=== PATIENT | female | born 1950 | race Caucasian/White ===

== ENCOUNTER 2019-02-03 14:01 | Inpatient (IN) | payer MEDICARE ==
[~2019-02-03] VITALS: Ht 160 cm; Wt 77.1 kg
--- NOTE | 2019-02-03 14:42 | NUR ---
PT BIB [facility] HOME, FOR PSYCH EVAL FOR REFUSING MEDICATION, PT IS AAOX3, HOOKED TO MONITOR, KEPT RESTED AND COMFORTABLE, WILL CONTIUE TO MONITOR.
--- NOTE | 2019-02-03 15:04 | NUR ---
SEEN AND EXAMINED BY CLARITA MIX
--- NOTE | 2019-02-03 15:10 | NUR ---
URINE SPECIMEN COLLECTED AND SENT TO LAB.
--- NOTE | 2019-02-03 15:22 | NUR ---
ER PHLEB AT BEDSIDE FOR BLOOD DRAW.
[2019-02-03 15:29] LABS: BASOPHILS # (AUTO) 0.1 /CMM (0.0-0.2); BASOPHILS % (AUTO) 0.7 % (0.0-2.0); EOSINOPHILS % (AUTO) 3.8 % (0.0-6.0); HEMATOCRIT 41 % (33-45); HEMOGLOBIN 13.7 g/dL (11.5-14.8); LYMPHOCYTES # (AUTO) 2.4 /CMM (0.8-4.8); LYMPHOCYTES % (AUTO) 34.8 % (20.0-44.0); MEAN CORPUSCULAR HGB CONC 33 g/dl (31.0-36.0); MEAN CORPUSCULAR VOLUME 88 fL (82-100); MONOCYTES # (AUTO) 0.5 /CMM (0.1-1.30); MONOCYTES % (AUTO) 7.4 % (2.0-12.0); NEUTROPHILS # (AUTO) 3.7 /CMM (1.8-8.9); NEUTROPHILS % (AUTO) 53.3 % (43.0-81.0); PLATELET COUNT (AUTO) 238 /CMM (150-450); RED BLOOD CELL COUNT(AUTO) 4.68 MIL/uL (4.0-5.2)
--- NOTE | 2019-02-03 15:30 | NUR ---
SON LUCERO CALLED ASKING FOR UPDATES
[2019-02-03 15:32] LABS: APPEARANCE,URINE Clear (CLEAR); BILIRUBIN,URINE Negative (NEGATIVE); BLOOD, URINE Small Ery/uL (NEGATIVE); COLOR,URINE Yellow (YELLOW); KETONES,URINE Negative (NEGATIVE); LEUKOCYTE ESTERASE ,URINE Trace (NEGATIVE); NITRITE, URINE Negative (NEGATIVE); PH,URINE 5.5 (5.0-8.0); PROTEIN,URINE Negative (NEGATIVE); UGLUCOSE Negative (NEGATIVE); UROBILINOGEN,URINE 0.2 EU/dL (0.2)
[2019-02-03 15:35] LABS: CALCIUM, SERUM 9.1 mg/dL (8.5-10.1); CARBON DIOXIDE 32 mmol/L (21-32); CHLORIDE 105 mmol/L (98-107); CREATININE 0.9 mg/dL (0.6-1.3); GLUCOSE 99 mg/dL (74-106); POTASSIUM 3.8 mmol/L (3.5-5.1); SODIUM SERUM 143 mmol/L (136-145); UREA NITROGEN, BLOOD 20 mg/dL (7-18)
[2019-02-03 15:41] LABS: BACTERIA,URINE None seen /HPF (None Seen); SQUAMOUS EPITHELIAL CELL,UR Few /HPF (None Seen); WBC,URINE 0-2 /HPF (0-3)
[2019-02-03 15:42] LABS: ALANINE AMINOTRANSFERASE 20 U/L (12-78); ALBUMIN 3.7 g/dL (3.4-5.0); ALCOHOL, BLOOD < 3 mg/dL (0-0); ALKALINE PHOSPHATASE 91 U/L (46-116); ASPARTATE AMINOTRANSFERASE 13 U/L (15-37); BILIRUBIN,TOTAL 0.3 mg/dL (0.2-1.0); SALICYLATE 0.8 mg/dL (2.8-20.0); TOTAL PROTEIN, SERUM 7.1 g/dL (6.4-8.2)
[2019-02-03 15:43] LABS: ACETAMINOPHEN 0 ug/ml (10-30)
--- NOTE | 2019-02-03 18:00 | NUR ---
JAMIE CALLEJAS CRISISTEAM AT BEDSIDE FOR EVAL.
--- NOTE | 2019-02-03 18:25 | NUR ---
TALKED TO LUCERO CONCEPCION FOR PT UPDATE. [phone]
--- NOTE | 2019-02-03 19:00 | NUR ---
BED ASSIGNED 214-1 GPS
--- NOTE | 2019-02-03 19:20 | NUR ---
PT RECEIVED FROM JENNIE BALL RN FOR [facility]. PT IS PENDING FOR ADMISSION.
--- NOTE | 2019-02-03 19:47 | NUR ---
REPORT GIVEN TO BRITTA RENDON FOR [facility]. PT GOING TO 214-1
--- NOTE | 2019-02-03 19:49 | NUR ---
CALLED SON LUCERO TO [facility] FOR ADMISSION BUT NO ANSWER MESSAGE LEFT TO CALL BACK FOR UPDATE
--- NOTE | 2019-02-03 19:54 | NUR ---
SON CALLED BACK. AWARE OF PT'S ADMISSION. SON REQUESTING TO HAVE DR. BAILEY CALL THE SON TOMORROW.
[2019-02-03 20:15] VITALS: BP 160/80
--- NOTE | 2019-02-03 20:15 | NUR ---
PT TRANSPORTED TO UNIT BY EMT AT BEDSIDE. NAD NOTED DURING TRANSPORT.
--- NOTE | 2019-02-03 20:20 | NUR ---
GPS ADMISSION NOTE, RECEIVED PATIENT FROM [facility].. PATIENT ARRIVED ON THIS UNIT AT 2020 VIA STRETCHER WITH 2 EMT ESCORTS. PATIENT ADMITTED ON A 5150 HOLD FOR GD. PER HOLD PATIENT HAS BEEN AGITATED AND UNMANAGEABLE AT FACILITY AND WAS REFERRED TO Filippo BAILEY. PATIENT WAS HOSTILE AND UNCOOPERATIVE WITH INTERVIEW. SHE HAS AN ANGRY AFFECT AND STATED, " YOU ARE IN THE WRONG PLACE! I AM NOT TELLING YOU A DAM THING. DR PASCAL IS MY DOCTOR AND I ONLY DEAL WITH HIM " ! PER DR BAILEY, HARVEY HAS BEEN PARANOID THAT STAFF AT THE FACILITY WANT TO POISON HER, SHE HAS BEEN ANGRY AND AGITATED, AND SHE IS REFUSING ALL CARE FROM STAFF. PATIENT IS UNPREDICTABLE AND UNMANAGEABLE AT THE FACILITY IN HER CURRENT CONDITION. THE 5150 WAS REVIEWED AND THE DOCUMENTATION IN THE 5150 HOLD APPEARS TO REFLECT THE PRESENTATION OF THE PATIENT. UPON FACE TO FACE ASSESSMENT PATIENT IS NOTED TO BEING WITHDRAWN, DISHEVELED, DISORGANIZED, DEMANDING, COOPERATIVE, PARANOID, AND NEEDS REDIRECTION. PATIENT IS CURRENTLY LYING IN BED AWAKE, HAS NO S/S OR COMPLAINTS OF PAIN. PATIENT IS DISPLAYING NO S/S OF APPARENT DISTRESS. PATIENT BREATHING IS UNLABORED WITH EQUAL RISE AND FALL OF THE CHEST. PATIENT IS ALERT AND ORIENTATED X 2 ON ROOM AIR. PATIENT ASSISTED WITH TURING AND REPOSITIONING Q2HR AND PRN FOR COMFORT AND CIRCULATION. PATIENT HAS NO NEEDS AT THIS TIME. PATIENT DENIES SUICIDE IDEATIONS AND HOMICIDAL IDEATIONS AT THIS TIME. PATIENT REFUSED TO SIGNS ANY PAPER WORK AND THINKS THIS IS ALL A MISTAKE. PATIENT ADVISED OF HER HOLD AND PATIENT RIGHTS BOOKLET GIVEN. PATIENT IS UNDER THE PSYCHIATRIC CARE OF DR. BAILEY AND THE MEDICAL CARE OF DR JIMENEZ. PATIENT BELONGINGS WERE INVENTORIED AND CHECKED FOR CONTRABAND. ALL CONTRABAND REMOVED AND STORED IN PATIENT HALLWAY LOCKER. PATIENT ADVANCED DIRECTIVES PREFERENCE, IMMUNIZATIONS QUESTIONER, NECESSARY PAPERWORK COMPLETED. PATIENT SKIN ASSESSMENT COMPLETED. PATIENT ORIENTATED TO ROOM, FLOOR, AND STAFF WITH ALL QUESTIONS ANSWERED. PATIENT EDUCATED ON THE USE OF THE CALL CAMPOS. PATIENT BED SIDE RAILS ARE UP X 2 FOR SAFETY. PATIENT BED IS LOCKED, LOW AND I WILL CONTINUE TO MONITOR THIS PATIENT Q 15 MIN WITH THE HELP OF STAFF TO MAINTAIN SAFETY.
[2019-02-03] MEDS ORDERED: MAGNESIUM HYDROXIDE 30 ML UDC PO PRN (20:30)
[2019-02-03] MEDS ORDERED: ACETAMINOPHEN 325 MG TABLET PO PRN (20:30)
[2019-02-03] MEDS ORDERED: MAG HYDROX/AL HYDROX/SIMETH 30 ML UDC PO PRN (20:30)
[2019-02-03] MEDS ORDERED: TEMAZEPAM 7.5 MG CAPSULE PO PRN (20:30)
[2019-02-03] MEDS ORDERED: LOSA25TA27 PO (20:55)
[2019-02-03] MEDS ORDERED: BENZ2TAB7 PO (20:57)
[2019-02-03] MEDS ORDERED: CHOL20004 PO (20:58)
[2019-02-03] MEDS ORDERED: ARIP15TA3 PO (20:59)
[2019-02-04 08:00] VITALS: BP 160/85
[2019-02-04] MEDS: LORAZEPAM 0.5 MG TABLET PO PRN (08:33)
[2019-02-04] MEDS: CHOLECALCIFEROL 1,000 UNIT TABLET (VIT D3) PO SCH (08:34)
[2019-02-04] MEDS: LOSARTAN POTASSIUM 25 MG TABLET PO SCH (08:34)
--- NOTE | 2019-02-04 09:00 | NUR ---
NURSE NOTE RECEIVED PT ALERT IN HER ROOM, PREOCCUPIED WITH THOUGHT RESPONDING TO INTERNAL STIMULI, STATED THAT SHE WANT TO BE DISCHARGED,
[2019-02-04] MEDS: risperiDONE 1 MG TABLET PO SCH ×2 (13:46→21:00)
--- NOTE | 2019-02-04 14:32 | NUR ---
RN-CO: Patient refused blood works 3x. Enc the benefits but still refused.
--- NOTE | 2019-02-04 14:54 | NUR ---
SW contacted pts son Sharif [phone] for collateral information, discharge planning, and treatment planning. Son stated that pt has been on and off her medications and also stated that pts medications need to be adjusted. Son is also agreeing with pt to be discharged to SNF.
--- NOTE | 2019-02-04 15:23 | NUR ---
INITIAL DISCHARGE PLAN: Patient needs chcf placement as pt is uncooperative with care. Pts son Sharif [phone] agrees with short term placement at [facility] before returning to [facility] Address: [address] [place] [address], [place] [address] . SW will help form a safe and proper discharge in collaboration with .
[2019-02-04 16:00] VITALS: BP 154/80
--- NOTE | 2019-02-04 17:20 | NUR ---
NURSE NOTE PT SPEND MOST OF THE SHIFT IN HER ROOM, MINI INTERACTION WITH OTHER PEERS, CONTINUE TO FOCUSED ON DISCHARGED
[2019-02-04 19:57] VITALS: BP 123/87
--- NOTE | 2019-02-04 21:30 | NUR ---
GPS RN NOTE: REFUSED RISPERDAL, EXPLAINED THE RISK AND BENEFIT X 3 ATTEMPTS, PATIENT STILL REFUSED AND STARTED GETTING AGITATED. STATED THAT SHE HAS THE RIGHT TO REFUSED AND SHE REFUSED. NOTIFIED CN. WILL CONTINUE TO MONITOR
[2019-02-05 08:00] VITALS: BP 147/64
[2019-02-05] MEDS: risperiDONE 1 MG TABLET PO SCH ×2 (09:00→20:43)
[2019-02-05] MEDS: CHOLECALCIFEROL 1,000 UNIT TABLET (VIT D3) PO SCH (09:00)
[2019-02-05] MEDS: LOSARTAN POTASSIUM 25 MG TABLET PO SCH (09:00)
--- NOTE | 2019-02-05 09:01 | NUR ---
GPS/RN NOTES PATIENT'S ROUTINE MORNING MEDICATIONS NOT GIVEN DUE TO PATIENT REFUSING. EXPLAINED RISK AND BENEFITS X3. STILL REFUSED X3. PATIENT STATED " I AM NOT SUPPOSED TO BE TAKING THOSE MEDICATIONS." PATIENT REMAINS IN STABLE CONDITION. WILL CONTINUE TO MONITOR CLOSELY.
[2019-02-05 16:00] VITALS: BP 154/97
--- NOTE | 2019-02-05 18:41 | NUR ---
GPS/RN CLOSING NOTES PATIENT IN THE ROOM AWAKE, ALERT AND ABLE TO MAKE NEEDS KNOWN. PATIENT WAS SEEN AND EVALUATED BY DR. BAILEY. NO NEW ORDERS AT THIS TIME. NO PAIN OR ACUTE DISTRESS AT THIS TIME. RESPIRATION EVEN AND UNLABORED. SKIN IS DRY WARM TO TOUCH. PATIENT ABLE TO TOLERATE MEALS WELL. PATIENT REFUSED TO TAKE HER MEDICATIONS. DR. BAILEY WAS AWARE OF THE REFUSAL. PATIENT CONTINUES TO PACE AROUND THE ROOM AND TALKING TO SELF. NO SI/HI. PATIENT REMAINS IN STABLE CONDITION THROUGHOUT. PROVIDED SAFETY AND COMFORT. ALL NEEDS ANTICIPATED. KEPT CLEAN AND DRY. CALL LIGHT WITHIN REACHED. BED LOCKED AND IN LOWEST POSITION. WILL CONTINUE TO MONITOR. ENDORSED TO PM NURSE FOR [facility].
[2019-02-05 20:00] VITALS: BP 124/77
--- NOTE | 2019-02-05 20:43 | NUR ---
RISPERIDONE 0.5 MG TAB PO DUE AT 2100 REFUSED. PATIENT STATED," MY DOCTOR TOLD ME NOT TO TAKE IT, I DON'T WANT IT."
[2019-02-06 08:00] VITALS: BP 151/106
[2019-02-06] MEDS: LOSARTAN POTASSIUM 25 MG TABLET PO SCH (08:45)
[2019-02-06] MEDS: risperiDONE 1 MG TABLET PO SCH ×2 (08:45→20:30)
--- NOTE | 2019-02-06 08:46 | NUR ---
RN NOTE: PATIENT REFUSED HER 0900 RISPERDALE. STATED THAT HER PSYCHIATRIST SAID NOT TO TAKE THE MEDICATION. AFTER SEVERAL ATTEMPTS, PATIENT STILL REFUSED MEDICATION AND STATED SHE WILL NOT TAKE THE MEDICATION AND WILL ONLY TAKE THE BLOOD PRESSURE MEDICATION AND VITAMINS.
[2019-02-06] MEDS: CHOLECALCIFEROL 1,000 UNIT TABLET (VIT D3) PO SCH (12:32)
--- NOTE | 2019-02-06 12:34 | NUR ---
RN NOTE: VITAMIN D GIVEN LATE DUE TO NOT ENOUGH TABLETS IN OMNICELL. PHARMACY WAS NOTIFIED.
[2019-02-06 16:00] VITALS: BP 158/96
--- NOTE | 2019-02-06 18:49 | NUR ---
RN NOTE: PATIENT WAS GIVEN WRITTEN INFORMATION ABOUT RISPERDAL AND WAS INFORMED AGAIN ON THE IMPORTANCE OF THE MEDICATION.
[2019-02-06 19:56] VITALS: BP 143/72
--- NOTE | 2019-02-06 20:31 | NUR ---
RISPERDAL 0.5 MG TAB PO Q 12H DUE AT 2100, REFUSED AGAIN FROM LAST NIGHT. MD AWARE. SINCE DAY SHIFT PER RN REPORT.
[2019-02-07 08:00] VITALS: BP 160/68
[2019-02-07] MEDS: LOSARTAN POTASSIUM 25 MG TABLET PO SCH (09:00)
[2019-02-07] MEDS: risperiDONE 1 MG TABLET PO SCH ×2 (09:00→21:00)
[2019-02-07] MEDS: CHOLECALCIFEROL 1,000 UNIT TABLET (VIT D3) PO SCH (09:00)
--- NOTE | 2019-02-07 10:07 | NUR ---
RN NOTES Patient refused medications. Explained risk and benefits of medications. Patient still refused. Patient in stable condition with no acute distress. Will continue to monitor.
[2019-02-07 16:00] VITALS: BP 156/87
--- NOTE | 2019-02-07 21:03 | NUR ---
REFUSED RISPERDAL 0.5 MG PO DUE FOR 2100 TONIGHT.
[2019-02-08 08:00] VITALS: BP 160/78
[2019-02-08] MEDS: CHOLECALCIFEROL 1,000 UNIT TABLET (VIT D3) PO SCH (09:00)
[2019-02-08] MEDS: LOSARTAN POTASSIUM 25 MG TABLET PO SCH (09:00)
[2019-02-08] MEDS: risperiDONE 1 MG TABLET PO SCH ×2 (09:00→21:00)
[2019-02-08 16:00] VITALS: BP 150/75
[2019-02-08 20:24] VITALS: BP 139/86
[2019-02-09 08:00] VITALS: BP 152/74
[2019-02-09] MEDS: LOSARTAN POTASSIUM 25 MG TABLET PO SCH (09:00)
[2019-02-09] MEDS: CHOLECALCIFEROL 1,000 UNIT TABLET (VIT D3) PO SCH (09:00)
[2019-02-09] MEDS: risperiDONE 1 MG TABLET PO SCH ×2 (09:00→17:00)
--- NOTE | 2019-02-09 09:33 | NUR ---
RN-CO: PATIENT STATED " I DON'T WANT TO TAKE ANY MEDICATIONS EVER!" RN GAVE THE IMPORTANCE AND SIDE EFFECTS BUT PATIENT REMAINED FIRM.
--- NOTE | 2019-02-09 09:51 | NUR ---
BILLY contacted pts Son Sharif [phone] and left a voicemail notifying him pt is scheduled for a Riese Hearing on this present day at 12:00pm.
--- NOTE | 2019-02-09 10:14 | NUR ---
SW received a call from pts Son Sharif [phone] stating this is pts first Riese Hearing and also stated he will not be able to attend the hearing.
[2019-02-09 16:00] VITALS: BP 150/79
[2019-02-09] MEDS ORDERED: OLANZAPINE 10 MG VIAL IM PRN (19:00)
[2019-02-09 20:18] VITALS: BP 139/80
[2019-02-10 08:00] VITALS: BP 154/84
[2019-02-10] MEDS: LOSARTAN POTASSIUM 25 MG TABLET PO SCH (08:25)
[2019-02-10] MEDS: risperiDONE 1 MG TABLET PO SCH ×2 (08:26→16:49)
[2019-02-10] MEDS: CHOLECALCIFEROL 1,000 UNIT TABLET (VIT D3) PO SCH (08:29)
--- NOTE | 2019-02-10 11:00 | NUR ---
gps acoustical logging engineer: notes clean catch urinalysis collected. called lab to scrap picker specimen, spoke to xu.
[2019-02-10 13:07] LABS: APPEARANCE,URINE CLEAR (CLEAR); BILIRUBIN,URINE NEGATIVE (NEGATIVE); BLOOD, URINE NEGATIVE Ery/uL (NEGATIVE); COLOR,URINE YELLOW (YELLOW); KETONES,URINE NEGATIVE (NEGATIVE); LEUKOCYTE ESTERASE ,URINE NEGATIVE (NEGATIVE); NITRITE, URINE NEGATIVE (NEGATIVE); PROTEIN,URINE NEGATIVE (NEGATIVE); UGLUCOSE NEGATIVE (NEGATIVE); UROBILINOGEN,URINE 0.2 EU/dL (0.2)
[2019-02-10 16:00] VITALS: BP 162/96
--- NOTE | 2019-02-10 16:23 | NUR ---
BILLY received a call from pts Son Sharif [phone] requesting to speak with psychiatrist Dr. Galindo regarding possibility of starting pt on long acting shot instead of PO medication. BILLY informed Dr. Galindo that son wanted to speak with her, she stated she would be giving son a call this afternoon.
[2019-02-10 20:39] VITALS: BP 156/88
[2019-02-10 22:22] VITALS: BP 155/84
[2019-02-11 06:36] LABS: BASOPHILS % (AUTO) 0.6 % (0.0-2.0); EOSINOPHILS % (AUTO) 5.5 % (0.0-6.0); HEMATOCRIT 41 % (33-45); HEMOGLOBIN 13.4 g/dL (11.5-14.8); LYMPHOCYTES # (AUTO) 2.1 /CMM (0.8-4.8); LYMPHOCYTES % (AUTO) 34.6 % (20.0-44.0); MEAN CORPUSCULAR HGB CONC 33 g/dl (31.0-36.0); MEAN CORPUSCULAR VOLUME 88 fL (82-100); MONOCYTES # (AUTO) 0.5 /CMM (0.1-1.30); MONOCYTES % (AUTO) 7.7 % (2.0-12.0); NEUTROPHILS # (AUTO) 3.2 /CMM (1.8-8.9); NEUTROPHILS % (AUTO) 51.6 % (43.0-81.0); PLATELET COUNT (AUTO) 215 /CMM (150-450); RED BLOOD CELL COUNT(AUTO) 4.62 MIL/uL (4.0-5.2); WHITE BLOOD COUNT (AUTO) 6.2 K/uL (4.3-11.0)
[2019-02-11 06:49] LABS: CALCIUM, SERUM 8.9 mg/dL (8.5-10.1); CREATININE 0.9 mg/dL (0.6-1.3); MAGNESIUM 2.2 mg/dL (1.8-2.4); PHOSPHORUS 3.6 mg/dL (2.5-4.9); POTASSIUM 4.2 mmol/L (3.5-5.1)
[2019-02-11 08:00] VITALS: BP 163/72
[2019-02-11] MEDS: CHOLECALCIFEROL 1,000 UNIT TABLET (VIT D3) PO SCH (08:00)
[2019-02-11] MEDS: LOSARTAN POTASSIUM 25 MG TABLET PO SCH (08:01)
[2019-02-11] MEDS ORDERED: risperiDONE 1 MG TABLET PO SCH (09:00)
[2019-02-11] MEDS: LORAZEPAM 0.5 MG TABLET PO PRN (12:01)
[2019-02-11 16:00] VITALS: BP 163/89
--- NOTE | 2019-02-11 16:03 | NUR ---
Picked Edge Sewing Machine Operator Group Session-- Goal: Patient will attend group being held today from 11am -11:45 in the activities room and participate and/or actively listen to peers and be respectful. Intervention: SW invited patient to attend group session with peers regarding: the goal or positive outcome/s each pt. would like to see happen as a result of their stay in [facility]. SW respected patient�s self-determination and will continue to invite patient to future group sessions. Response: Patient declined to participate in today�s group rn social services session. Plan: Patient will be invited to attend next rn social services group held.
[2019-02-11] MEDS: risperiDONE 1 MG TABLET PO SCH (17:20)
[2019-02-11 19:49] VITALS: BP 163/103
[2019-02-11 21:00] VITALS: BP 135/67
[2019-02-12 08:00] VITALS: BP 156/83
[2019-02-12] MEDS: LOSARTAN POTASSIUM 25 MG TABLET PO SCH (08:42)
[2019-02-12] MEDS: risperiDONE 1 MG TABLET PO SCH (08:42)
[2019-02-12] MEDS: CHOLECALCIFEROL 1,000 UNIT TABLET (VIT D3) PO SCH (08:43)
--- NOTE | 2019-02-12 09:19 | NUR ---
BILLY faxed SNF referral to Angela, media marketing coordinator at [facility] Address: [address], [place] [address] for review.
--- NOTE | 2019-02-12 12:00 | NUR ---
SW received a call from Angela, real estate services coordinator at [facility] Address: [address], [place] [address] stating pt has been accepted to the facility.
[2019-02-12 16:35] VITALS: BP_SYST 100; BP_SYST 145; BP_DIAS 45; BP_DIAS 65
[2019-02-12] MEDS ORDERED: risperiDONE 1 MG TABLET PO SCH (17:00)
[2019-02-12 20:00] VITALS: BP 126/71
[2019-02-13 08:00] VITALS: BP 143/66
[2019-02-13] MEDS: CHOLECALCIFEROL 1,000 UNIT TABLET (VIT D3) PO SCH (08:49)
[2019-02-13] MEDS: risperiDONE-M 0.5 MG TAB.RAPDIS PO SCH ×2 (08:51→17:03)
[2019-02-13] MEDS: LOSARTAN POTASSIUM 25 MG TABLET PO SCH (08:52)
[2019-02-13] MEDS ORDERED: OLANZAPINE 10 MG VIAL IM PRN (15:30)
[2019-02-13 16:00] VITALS: BP 134/78
[2019-02-13] MEDS: DIVALPROEX SODIUM 250 MG TABLET.DR PO SCH (17:03)
[2019-02-13 20:00] VITALS: BP 147/90
[2019-02-14 08:00] VITALS: BP 130/67
[2019-02-14] MEDS: LOSARTAN POTASSIUM 25 MG TABLET PO SCH (08:37)
[2019-02-14] MEDS: CHOLECALCIFEROL 1,000 UNIT TABLET (VIT D3) PO SCH (08:37)
[2019-02-14] MEDS: DIVALPROEX SODIUM 250 MG TABLET.DR PO SCH ×3 (08:38→17:21)
[2019-02-14] MEDS: risperiDONE-M 0.5 MG TAB.RAPDIS PO SCH ×3 (08:39→17:21)
[2019-02-14 16:00] VITALS: BP 130/58
[2019-02-14 19:57] VITALS: BP 134/77
[2019-02-15 08:00] VITALS: BP 149/90
[2019-02-15] MEDS: risperiDONE-M 0.5 MG TAB.RAPDIS PO SCH ×3 (08:38→17:13)
[2019-02-15] MEDS: DIVALPROEX SODIUM 250 MG TABLET.DR PO SCH ×3 (08:38→17:13)
[2019-02-15] MEDS: LOSARTAN POTASSIUM 25 MG TABLET PO SCH ×2 (08:39→09:00)
[2019-02-15] MEDS: CHOLECALCIFEROL 1,000 UNIT TABLET (VIT D3) PO SCH (08:40)
--- NOTE | 2019-02-15 09:38 | NUR ---
GPS RN NOTES: PT REFUSED BP MEDICATION THREE TIMES. VITAL SIGNS TAKEN, BP 129/76,PULSE 90. PT STABLE AND TOOK ALL OTHER SCHEDULED MEDICATION.
[2019-02-15 16:32] VITALS: BP 130/75
[2019-02-15 20:18] VITALS: BP 160/82
[2019-02-16 00:35] VITALS: BP 125/71
[2019-02-16 08:00] VITALS: BP 141/72
[2019-02-16] MEDS: DIVALPROEX SODIUM 250 MG TABLET.DR PO SCH ×3 (08:37→17:24)
[2019-02-16] MEDS: CHOLECALCIFEROL 1,000 UNIT TABLET (VIT D3) PO SCH (08:37)
[2019-02-16] MEDS: risperiDONE-M 0.5 MG TAB.RAPDIS PO SCH ×3 (08:37→17:24)
[2019-02-16] MEDS: LOSARTAN POTASSIUM 25 MG TABLET PO SCH (08:38)
--- NOTE | 2019-02-16 08:39 | NUR ---
RN NOTE: PATIENT REFUSEDE HER 0900 BP MED WITH BP 141/72. EXPLAINED THE IMPORTANCE OF MEDICATION AND PATIENT CONTINUES TO REFUSE.
[2019-02-16] MEDS ORDERED: MISCELLANEOUS MED 1 EA EA XX ONE (12:00)
[2019-02-16 16:00] VITALS: BP 132/59
[2019-02-16 20:00] VITALS: BP 120/57
[2019-02-17 07:48] LABS: BASOPHILS % (AUTO) 0.7 % (0.0-2.0); EOSINOPHILS % (AUTO) 7.3 % (0.0-6.0); HEMATOCRIT 41 % (33-45); HEMOGLOBIN 13.7 g/dL (11.5-14.8); LYMPHOCYTES # (AUTO) 2.5 /CMM (0.8-4.8); LYMPHOCYTES % (AUTO) 41.2 % (20.0-44.0); MEAN CORPUSCULAR HGB CONC 34 g/dl (31.0-36.0); MEAN CORPUSCULAR VOLUME 87 fL (82-100); MONOCYTES # (AUTO) 0.4 /CMM (0.1-1.30); MONOCYTES % (AUTO) 6.1 % (2.0-12.0); NEUTROPHILS # (AUTO) 2.8 /CMM (1.8-8.9); NEUTROPHILS % (AUTO) 44.7 % (43.0-81.0); PLATELET COUNT (AUTO) 224 /CMM (150-450); RED BLOOD CELL COUNT(AUTO) 4.67 MIL/uL (4.0-5.2); WHITE BLOOD COUNT (AUTO) 6.2 K/uL (4.3-11.0)
[2019-02-17 08:00] VITALS: BP 134/79
[2019-02-17 08:00] LABS: ALBUMIN 3.5 g/dL (3.4-5.0); BILIRUBIN,TOTAL 0.3 mg/dL (0.2-1.0); CALCIUM, SERUM 9.3 mg/dL (8.5-10.1); CREATININE 0.9 mg/dL (0.6-1.3); POTASSIUM 4.3 mmol/L (3.5-5.1); TOTAL PROTEIN, SERUM 7.3 g/dL (6.4-8.2)
[2019-02-17] MEDS: DIVALPROEX SODIUM 250 MG TABLET.DR PO SCH ×2 (08:54→12:02)
[2019-02-17] MEDS: CHOLECALCIFEROL 1,000 UNIT TABLET (VIT D3) PO SCH (08:54)
[2019-02-17] MEDS ORDERED: INVEGA SUSTENNA 156 MG IM ONE (09:00)
[2019-02-17] MEDS: LOSARTAN POTASSIUM 25 MG TABLET PO SCH (09:00)
[2019-02-17] MEDS ORDERED: OLANZAPINE 10 MG VIAL IM PRN (12:00)
--- NOTE | 2019-02-17 15:54 | NUR ---
GROUP NOTE: SW prompted pt to attend group therapy pt unable to participate due to responding to internal stimuli and stating she did not want to leave her room.
[2019-02-17 16:00] VITALS: BP 151/94
[2019-02-17] MEDS: risperiDONE 1 MG TABLET PO SCH (16:21)
[2019-02-17] MEDS: DIVALPROEX SODIUM 500 MG TABLET.DR PO SCH (19:47)
[2019-02-17 20:12] VITALS: BP 130/78
[2019-02-18 08:00] VITALS: BP 152/83
[2019-02-18] MEDS: DIVALPROEX SODIUM 250 MG TABLET.DR PO SCH ×2 (08:40→13:11)
[2019-02-18] MEDS: LOSARTAN POTASSIUM 25 MG TABLET PO SCH (08:41)
--- NOTE | 2019-02-18 08:41 | NUR ---
RN NOTE: PATIENT REFUSED HER 0900 BP MED. INFORMED HER OF HER BP LEVEL OF 159/89 AND TGHE IMPORTANCE OF TAKING THE MEDICATION SEVERAL TIMES, PATIENT CONTINUES TO REFUSE.
[2019-02-18] MEDS: CHOLECALCIFEROL 1,000 UNIT TABLET (VIT D3) PO SCH (08:42)
[2019-02-18] MEDS: risperiDONE 1 MG TABLET PO SCH ×2 (08:52→16:59)
--- NOTE | 2019-02-18 15:05 | NUR ---
CONCERNED OVER CALLOUSED AREA INNER LT. LITTLE TOE.WOUND CONSULT ORDERED.
--- NOTE | 2019-02-18 15:33 | NUR ---
GROUP NOTE: SW prompted pt to attend group therapy pt unable to participate due to responding to internal stimuli and began yelling at SW telling her she did not want to talk to her.
[2019-02-18 16:00] VITALS: BP 136/86
[2019-02-18] MEDS: DIVALPROEX SODIUM 500 MG TABLET.DR PO SCH (20:06)
[2019-02-18 20:28] VITALS: BP 139/56
[2019-02-19 08:00] VITALS: BP 131/68
[2019-02-19] MEDS: CHOLECALCIFEROL 1,000 UNIT TABLET (VIT D3) PO SCH (08:51)
[2019-02-19] MEDS: risperiDONE 1 MG TABLET PO SCH ×2 (08:51→17:10)
[2019-02-19] MEDS: DIVALPROEX SODIUM 250 MG TABLET.DR PO SCH ×3 (08:51→17:13)
[2019-02-19] MEDS: LOSARTAN POTASSIUM 25 MG TABLET PO SCH (09:00)
--- NOTE | 2019-02-19 14:53 | NUR ---
BILLY contacted pts Son Sharif [phone] and left a voicemail informing him pt will be discharging tomorrow Saturday02/20/19 at 12:00pm [facility].
--- NOTE | 2019-02-19 15:52 | NUR ---
Group Note: SW prompted pt to attend group therapy pt unable to participate due to responding to internal stimuli and began verbally aggressive.
[2019-02-19 16:00] VITALS: BP 140/79
[2019-02-19] MEDS: DIVALPROEX SODIUM 500 MG TABLET.DR PO SCH (20:11)
[2019-02-19 20:15] VITALS: BP 155/85
[2019-02-20 08:00] VITALS: BP 144/75
[2019-02-20] MEDS: DIVALPROEX SODIUM 250 MG TABLET.DR PO SCH ×2 (08:36→12:44)
[2019-02-20] MEDS: risperiDONE 1 MG TABLET PO SCH (08:36)
[2019-02-20] MEDS: CHOLECALCIFEROL 1,000 UNIT TABLET (VIT D3) PO SCH (08:36)
[2019-02-20 08:38] VITALS: BP 140/75
[2019-02-20] MEDS: LOSARTAN POTASSIUM 25 MG TABLET PO SCH (08:38)
--- NOTE | 2019-02-20 09:00 | NUR ---
RN-CO:Dr Galindo gave an order to discontinue hold and discharge patient to SNF today, noted. Patient to her PO meds, calm and cooperative to care. Patient denied suicidal and homicidal ideation. She denied command hallucination. No acute distress noted.
--- NOTE | 2019-02-20 09:57 | NUR ---
DISCHARGE NOTE: Pt will be discharged at 12:00pm via [facility] to [facility] ([facility] [address] [facility] [address] . Pt's Son Sharif [phone] has been notified via voicemail. Pts mood is less irritable/paranoid with flat affect. Pt denied suicidal/homicidal ideation. Pt is responding intermittently to visual/auditory hallucinations. Pt will be under the care of Psychiatrist: Dr. Amira Galindo [address] [place] [phone] and Safety Associate: Dr Carranza Address: [address] [place] [id number] . The multidisciplinary exit care form was done, printed, signed, and given to the patient.
--- NOTE | 2019-02-20 11:44 | NUR ---
SS Group Goal: Patient will attend group being held today from 10am -10:30 in the activities room and participate and/or actively listen to peers and be respectful. Intervention: SW facilitated group session with patients regarding their support system. Response: Patient was sleeping and did not attend group session. Plan: Patient will be invited to attend next social service assistant group session held.
--- NOTE | 2019-02-20 13:00 | NUR ---
Discharged patient in stable condition picked up by ambulance crew. dc paperwork given to pretzel packer. report given to BRITTA Ogden from [facility] [place] instructions given, verbalized understanding. removed name band. all belongings returned to patient. refused skin check and photos, per report patient skin is intact. 1245: T/O from Dr. Davis to continue Home Meds and DC the PRNs.
== END 2019-02-20 13:35 | DRG 885 ==
LOC: ER 14:07 → GPS 19:41
PROVIDERS: ADMIT Psychiatry & Neurology Psychosomatic Medicine; ATTEND Internal Medicine
DX: F25.0 Schizoaffective disorder, bipolar type (principal); F32.9 Major depressive disorder, single episode, unspecified; F41.9 Anxiety disorder, unspecified; I10 Essential (primary) hypertension; F29 Unspecified psychosis not due to a substance or known physiological condition; Z73.6 Limitation of activities due to disability; Z91.14 Patient's other noncompliance with medication regimen
CPT/HCPCS: 36415; 80048-TC; 80053-TC; 80076-TC; 80164-TC; 80305; 81000-TC; 83735-TC; 84100-TC; 85025-TC; 87081-TC; 87086-TC; G0480

== ENCOUNTER 2019-04-29 13:51 | Inpatient (IN) | payer MEDICARE ==
[~2019-04-29] VITALS: Ht 157.5 cm; Wt 89.8 kg
[~2019-04-29 13:51] MED LIST: ARIP15TA3 PO; BENZ2TAB7 PO; CHOL20004 PO; LOSA25TA27 PO
[2019-04-29] MEDS ORDERED: NA P133E RC (14:05)
[2019-04-29] MEDS ORDERED: MAGN400O6 PO (14:05)
[2019-04-29] MEDS ORDERED: DOCU-141 PO (14:05)
[2019-04-29] MEDS ORDERED: ACET-868 PO (14:05)
[2019-04-29] MEDS ORDERED: BISA10SU11 RC (14:05)
--- NOTE | 2019-04-29 14:10 | NUR ---
MAIN [facility], FOR PSYCH EVAL. INCREASING PARANOIA, REFUSING TO LEAVE ROOM DENIES SI/HI. PATIENT A/OX2 WITH EPISODES OF CONFUSION, KEPT COMFORTABLE. URINE SAMPLE OBTAINED AND SENT TO LAB.
[2019-04-29 14:24] LABS: APPEARANCE,URINE Clear (CLEAR); BILIRUBIN,URINE Negative (NEGATIVE); BLOOD, URINE Trace-intact Ery/uL (NEGATIVE); COLOR,URINE Yellow (YELLOW); KETONES,URINE Negative (NEGATIVE); LEUKOCYTE ESTERASE ,URINE Trace (NEGATIVE); NITRITE, URINE Negative (NEGATIVE); PH,URINE 5.5 (5.0-8.0); PROTEIN,URINE Negative (NEGATIVE); UGLUCOSE 100 MG/DL mg/dL (NEGATIVE); UROBILINOGEN,URINE 0.2 EU/dL (0.2)
[2019-04-29 14:25] LABS: BACTERIA,URINE Few /HPF (None Seen); SQUAMOUS EPITHELIAL CELL,UR Few /HPF (None Seen)
[2019-04-29 14:43] LABS: BASOPHILS % (AUTO) 0.6 % (0.0-2.0); EOSINOPHILS % (AUTO) 2.6 % (0.0-6.0); HEMATOCRIT 40 % (33-45); HEMOGLOBIN 13.4 g/dL (11.5-14.8); LYMPHOCYTES # (AUTO) 1.2 /CMM (0.8-4.8); MEAN CORPUSCULAR HGB CONC 33 g/dl (31.0-36.0); MEAN CORPUSCULAR VOLUME 87 fL (82-100); MONOCYTES # (AUTO) 0.3 /CMM (0.1-1.30); MONOCYTES % (AUTO) 4.6 % (2.0-12.0); NEUTROPHILS # (AUTO) 4.4 /CMM (1.8-8.9); NEUTROPHILS % (AUTO) 72.2 % (43.0-81.0); PLATELET COUNT (AUTO) 220 /CMM (150-450); WHITE BLOOD COUNT (AUTO) 6.1 K/uL (4.3-11.0)
[2019-04-29 14:53] LABS: CALCIUM, SERUM 8.9 mg/dL (8.5-10.1); CARBON DIOXIDE 31 mmol/L (21-32); CHLORIDE 103 mmol/L (98-107); CREATININE 1.3 mg/dL (0.6-1.3); GLUCOSE 161 mg/dL (74-106); POTASSIUM 3.7 mmol/L (3.5-5.1); SODIUM SERUM 138 mmol/L (136-145); UREA NITROGEN, BLOOD 21 mg/dL (7-18)
[2019-04-29 14:59] LABS: ACETAMINOPHEN 0 ug/ml (10-30); ALANINE AMINOTRANSFERASE 16 U/L (12-78); ALBUMIN 3.6 g/dL (3.4-5.0); ALCOHOL, BLOOD < 3 mg/dL (0-0); ALKALINE PHOSPHATASE 83 U/L (46-116); ASPARTATE AMINOTRANSFERASE 13 U/L (15-37); BILIRUBIN,DIRECT 0.1 mg/dL (0.0-0.2); BILIRUBIN,TOTAL 0.2 mg/dL (0.2-1.0); SALICYLATE 0.8 mg/dL (2.8-20.0); TOTAL PROTEIN, SERUM 7.1 g/dL (6.4-8.2)
[2019-04-29 15:13] LABS: THYROID STIMULATING HORMONE 1.033 uIU/mL (0.358-3.74)
--- NOTE | 2019-04-29 16:15 | NUR ---
GPS 211
--- NOTE | 2019-04-29 16:37 | NUR ---
REPORT GIVEN TO FANTASMA CALLEJAS
--- NOTE | 2019-04-29 17:19 | NUR ---
PATIENT TRANSFERRED TO ROOM 211, PATIENT IN STABLE CONDITION. STILL NOTED TO BE DELUSIONAL.
[2019-04-29] MEDS ORDERED: LORAZEPAM 0.5 MG TABLET PO PRN (17:30)
[2019-04-29] MEDS ORDERED: ACETAMINOPHEN 325 MG TABLET PO PRN ×2 (17:30→19:00)
[2019-04-29] MEDS ORDERED: MAGNESIUM HYDROXIDE 30 ML UDC PO PRN ×2 (17:30→19:00)
[2019-04-29] MEDS ORDERED: TEMAZEPAM 7.5 MG CAPSULE PO PRN (17:30)
[2019-04-29] MEDS ORDERED: BLOOD SUGAR DIAGNOSTIC 1 EACH STRIP IN ONE (17:30)
[2019-04-29] MEDS ORDERED: MAG HYDROX/AL HYDROX/SIMETH 30 ML UDC PO PRN (17:30)
[2019-04-29 17:40] VITALS: BP 145/76
--- NOTE | 2019-04-29 18:15 | NUR ---
ELECTROCARDIOGRAPHIC TECHNICIAN NOTE: PATIENT IS A 68 YEAR OLD FEMALE THAT [facility]. PATIENT GOT ADMITTED TO [facility] GPS AT 1715 PLACED ON A 5150 HOLD FOR GD. PER HOLD, "WHEN INTERVIEWED AT BEDSIDE, PT WAS CHALLENGING, IRRITATED, HER VOICE IS LOUD AND ANGRY. SHE STATED "I LIVE IN [place]. I LIVE NEAR THE SUPREME COURT ROOM, I AM MENTALLY SOUND. THE SUPREME COURT WILL TELL YOU THAT. I AM BEING CONTROLLED BY F-CKING PSYCHIATRISTS AND THEY ARE MURDERING ME WITH THEIR MEDICATIONS! A SNAKE IS NOT A PSYCHIATRIST!" PER STAFF AT THE FACILITY [facility], PATIENT HAS BEEN BARRICADING HERSELF IN HER ROOM AND REFUSING TO COME OUT. SHE WON'T SPEAK TO STAFF AND SHE HAS BEEN INCREASINGLY PARANOID AND DELUSIONAL. SHE CANNOT BE MANAGED IN HER CONDITION." UPON FACE TO FACE ASSESSMENT, PATIENT IS ALERT X 3. AGITATED. UNCOOPERATIVE WITH PLAN OF CARE. DISHEVELED. CLEAR SPEECH. ANGRY, HOSTILE AND VERBALLY AGGRESSIVE. PARANOID. GUARDED. DENIES SI/HI VAH AT THIS TIME. PATIENT REFUSES TO SIGN CONSENTS, SKIN CHECK, PICTURE BEING TAKEN, ACCUCHECK AND PLAN OF CARE. VITAL SIGNS TAKEN. MEDS RECONCILED WITH DR BAILEY WITH ADMITTING ORDERS. CALLED [employer] AND AWAITING CALL BACK FROM DR BRUMFIELD TO REVIEW MED RECON. GAVE PATIENT HANDBOOK INCLUDING PATIENT'S RIGHTS AND GUIDE TO PRESCRIPTIONS. WILL MONITOR PATIENT Q 15 MINUTES FOR SAFETY AND BEHAVIOR PER GPS PROTOCOL. Addendum: 04/29/19 at 1834 by CLYDE HARRELL RN INFORMED LUCERO LEODAN (SON) ON PATIENT'S ADMISSION TO [facility] GPS.
[2019-04-29] MEDS ORDERED: BISACODYL SUPP (10 MG) 10 MG/SUPP.RECT SUPP.RECT RC PRN (19:00)
[2019-04-29] MEDS ORDERED: NA PHOS,M-B/NA PHOS,DI-BA 1 EA ENEMA RC PRN (19:00)
[2019-04-29 20:31] VITALS: BP 148/66
[2019-04-30 07:38] LABS: CHOLESTEROL 233 mg/dL (<200); HDL CHOLESTEROL 47 mg/dL (40-60); LDL 156 mg/dL (0-99); TRIGLYCERIDES 94 mg/dL (30-150)
[2019-04-30 07:39] LABS: ALBUMIN 3.3 g/dL (3.4-5.0); BILIRUBIN,TOTAL 0.3 mg/dL (0.2-1.0); CALCIUM, SERUM 8.6 mg/dL (8.5-10.1); CREATININE 0.9 mg/dL (0.6-1.3); POTASSIUM 3.8 mmol/L (3.5-5.1); TOTAL PROTEIN, SERUM 6.7 g/dL (6.4-8.2)
[2019-04-30 08:00] VITALS: BP 157/79
[2019-04-30] MEDS: BENZTROPINE MESYLATE (1 MG) 1 MG TABLET PO SCH ×2 (08:17→16:43)
[2019-04-30] MEDS: LOSARTAN POTASSIUM 25 MG TABLET PO SCH (08:17)
[2019-04-30] MEDS: CHOLECALCIFEROL 1,000 UNIT TABLET (VIT D3) PO SCH (08:17)
--- NOTE | 2019-04-30 08:18 | NUR ---
RN NOTE: PATIENT REFUSED 0900 MEDICATIONS. EXPLAINED THE IMPORTANCE. PATIENT CONTINUES TO REFUSE AFTER MULTIPLE ATTEMPTS AND TOLD ME "I'M FIRED, GET THE F-CK OUT".
--- NOTE | 2019-04-30 10:03 | NUR ---
BILLY spoke with pts son Sharif [phone] who stated that he wanted to make sure pt is stable with her medications before she is discharged to an assisted living. BILLY informed him that pt is refusing medications and is refusing care. Pts son is aware and stated that he wants Dr. Galindo to call him to discuss pts treatment. BILLY informed him that she will notify Dr. Galindo.
--- NOTE | 2019-04-30 10:47 | NUR ---
SW received a call from Angela, equipment coordinator at [facility] Address: [address], [place] [address] who stated that pt is able to return to the facility. However, she mentioned that pts son had already made a down payment at [facility] Address: [address] [place] [address] and pt was ready to discharge but son did not make her aware of her transfer and that is when pt refused to go and was hospitalized. Per Angela, she stated facility will not accept her if she is non-compliant with care and medications.
--- NOTE | 2019-04-30 11:39 | NUR ---
INITIAL DISCHARGE PLAN: Per son Sharif [phone] he will not discuss discharge plan until pt os stable and med-compliant. Per Angela, recreation activities coordinator at [facility] Address: [address], [place] [address] pt is able to return and also informed SW that son has already paid a deposit at [facility] Address: [address] [place] [address] but pt is unable to be transferred there unless she is compliant with her treatment and medications. SW will help form a safe and proper discharge in collaboration with .
[2019-04-30 16:00] VITALS: BP 156/71
[2019-04-30] MEDS: risperiDONE-M 0.5 MG TAB.RAPDIS PO SCH (16:43)
--- NOTE | 2019-04-30 16:43 | NUR ---
RN NOTE: PATIENT REFUSED 1700 MEDS
[2019-04-30] MEDS: DOCUSATE SODIUM 100 MG CAPSULE PO SCH (18:00)
[2019-04-30 19:59] VITALS: BP 158/71
[2019-04-30 20:00] VITALS: BP 158/71
--- NOTE | 2019-04-30 20:00 | NUR ---
rn notes: met with pt in the room. pt is a/o x3, appears clam and comfortable, respirations even and unlabored. denies any pain or discomfort at this time. pt only engaged in interaction when asked. always sitting in the room. per report pt refused care, refused medications, assessment. asked if pt has hx of dm, as it was stated on her medical record, per pt she claimed she never had diabetes, and not taking any medications for it. informed pt about blood sugar monitoring, if i can do accucheck for her at this time, pt refused. she stated she only wants sandwhich and apple juice as she was hungry. pt denies any si/hi at this time. safety precautions for fall initaited, side rails up x2 for safety, will cotninue montioring pt [id number] for safety and any changes in behavior.
[2019-04-30] MEDS: DIVALPROEX SODIUM 250 MG TABLET.DR PO SCH (21:00)
[2019-04-30] MEDS: ATORVASTATIN 10 MG TABLET PO SCH (21:18)
--- NOTE | 2019-04-30 21:18 | NUR ---
non admin of depakote and lipitor: informed pt abpout schedule medication such as depakote and lipitor, pt started becoming agitated, yelled "go talk to magisterial district judge!" pt started cursing and stated darwin has no right to order any medication for her. Patient also added, "the magisterial district judge informed me not to get/receive any medication from anybody!". Informed pt she has the right to refuse medication, however, rn still offer to educate pt regarding this medication and importance of med compliance.
--- NOTE | 2019-04-30 21:21 | NUR ---
rn notes: notified international account executive regarding pt's refusal for medication
--- NOTE | 2019-05-01 00:56 | NUR ---
rn notes: seen pt sleeping comfortably in bed. respirations even and unlabored.
[2019-05-01 08:00] VITALS: BP 160/82
[2019-05-01] MEDS: LOSARTAN POTASSIUM 25 MG TABLET PO SCH (08:43)
[2019-05-01] MEDS: BENZTROPINE MESYLATE (1 MG) 1 MG TABLET PO SCH ×2 (08:43→17:00)
[2019-05-01] MEDS: CHOLECALCIFEROL 1,000 UNIT TABLET (VIT D3) PO SCH (08:44)
[2019-05-01] MEDS: DIVALPROEX SODIUM 250 MG TABLET.DR PO SCH ×2 (08:44→20:08)
[2019-05-01] MEDS: risperiDONE-M 0.5 MG TAB.RAPDIS PO SCH ×2 (08:44→17:00)
[2019-05-01 16:00] VITALS: BP 160/83
[2019-05-01] MEDS: DOCUSATE SODIUM 100 MG CAPSULE PO SCH (17:07)
--- NOTE | 2019-05-01 19:12 | NUR ---
A/O X3, NAME, TIME AND PLACE. INTERACTS WHEN ENGAGED. CALM, FLAT AFFECT, ANXIOUS, NO PROFANE LANGUAGE NOTED AT THIS TIME. ENVIRONMENTAL SAFETY CHECK DONE. PLACED ON FALL PRECAUTION, BED ALARM ON, BED LOCKED AND ON LOWEST POSITION. WILL CONTINUE TO MONITOR Q 15 MINS. FOR SAFETY AND BEHAVIOR.
--- NOTE | 2019-05-01 20:05 | NUR ---
ASKED PATIENT IF SHE IS READY TO TAKE HER DEPAKOTE 250 MG AND ATORVASTATIN FOR TONIGHT. PATIENT STATED, " I DON'T TAKE MEDICATIONS BECAUSE I AM FREE." EXPLAINED BENEFITS AND IMPORTANCE, SHE STILL REFUSED.
[2019-05-01 20:46] VITALS: BP 139/93
[2019-05-01] MEDS: ATORVASTATIN 10 MG TABLET PO SCH (21:16)
--- NOTE | 2019-05-01 21:16 | NUR ---
STILL REFUSING HER MEDICATION FOR 2199.
[2019-05-02 08:00] VITALS: BP 177/79
[2019-05-02] MEDS: LOSARTAN POTASSIUM 25 MG TABLET PO SCH (09:00)
[2019-05-02] MEDS: CHOLECALCIFEROL 1,000 UNIT TABLET (VIT D3) PO SCH (09:00)
[2019-05-02] MEDS: DIVALPROEX SODIUM 250 MG TABLET.DR PO SCH ×2 (09:00→20:24)
[2019-05-02] MEDS: risperiDONE-M 0.5 MG TAB.RAPDIS PO SCH ×2 (09:00→16:58)
[2019-05-02] MEDS: BENZTROPINE MESYLATE (1 MG) 1 MG TABLET PO SCH ×2 (09:00→16:58)
--- NOTE | 2019-05-02 13:07 | NUR ---
GPS/RN PT REFUSED ALL MEDS TODAY ON NUMEROUS OCCASIONS. PT STATED THAT SHE IS FROM [facility] AND SPEAKS LATVIAN ONLY WHEN ASKED HER PREFERRED LANGUAGE FOR THE COURT APPEARANCE.
[2019-05-02 16:00] VITALS: BP 141/79
[2019-05-02] MEDS: DOCUSATE SODIUM 100 MG CAPSULE PO SCH (17:21)
[2019-05-02 19:58] VITALS: BP 157/81
--- NOTE | 2019-05-02 20:24 | NUR ---
GPS RN NOTE: PATIENT REFUSED ALL EVENING MEDICATIONS ORDERED. EXPLAINED RISK AND BENEFIT, BUT STILL CONTINUES TO REFUSE MEDICATIONS. WILL CONTINUE TO MONITOR.
[2019-05-02] MEDS: ATORVASTATIN 10 MG TABLET PO SCH (22:00)
[2019-05-03 08:00] VITALS: BP 155/93
[2019-05-03] MEDS: DIVALPROEX SODIUM 250 MG TABLET.DR PO SCH ×2 (08:19→20:47)
[2019-05-03] MEDS: LOSARTAN POTASSIUM 25 MG TABLET PO SCH (08:19)
[2019-05-03] MEDS: CHOLECALCIFEROL 1,000 UNIT TABLET (VIT D3) PO SCH (08:19)
[2019-05-03] MEDS: BENZTROPINE MESYLATE (1 MG) 1 MG TABLET PO SCH ×2 (08:19→17:00)
[2019-05-03] MEDS: risperiDONE-M 0.5 MG TAB.RAPDIS PO SCH ×2 (08:19→17:00)
--- NOTE | 2019-05-03 08:34 | NUR ---
GPS/RN PT REFUSED AM MEDS OFFERED X3.
[2019-05-03 16:00] VITALS: BP 157/97
[2019-05-03] MEDS: DOCUSATE SODIUM 100 MG CAPSULE PO SCH (18:00)
--- NOTE | 2019-05-03 18:12 | NUR ---
GPS/RN PT REFUSED ALL MEDS TODAY OFFERED X3
--- NOTE | 2019-05-03 19:22 | NUR ---
GPS/RN NOTE: A/O X3, P IN BED, CALM, QUIET, NO NOTED PROFANE LANGUAGE AT THIS TIME. INTERACTS WHEN ENGAGED. ENVIRONMENTAL SAFETY CHECK. SAFETY PRECAUTION OBSERVED. BED LOCKED AND PLACED ON LOWEST POSITION. BED ALARM ON. WILL CONTINUE TO MONITOR Q 15 MNS. TO MAINTAIN SAFETY.
[2019-05-03 19:45] VITALS: BP 145/83
[2019-05-03 20:00] VITALS: BP 122/72
--- NOTE | 2019-05-03 20:47 | NUR ---
DEPAKOTE 250 MG TAB PO REFUSED, EXPLAINED THE BENEFITS, OFFERED X2, STILL REFUSED.
[2019-05-03] MEDS: ATORVASTATIN 10 MG TABLET PO SCH (21:03)
--- NOTE | 2019-05-03 21:04 | NUR ---
LIPITOR 20 MG PO REFUSED, EXPLAINED BENEFITS TWO TIMES, STILL REFUSED.
[2019-05-04 05:44] VITALS: BP 122/72
--- NOTE | 2019-05-04 06:24 | NUR ---
GPS RN NOTES: PT SLEPT WELL. ISOLATIVE. NONE COMPLIANT WITH MEDS. WILL CONTINUE TO MONITOR.
[2019-05-04 08:00] VITALS: BP 157/96
[2019-05-04] MEDS: LOSARTAN POTASSIUM 25 MG TABLET PO SCH (08:41)
[2019-05-04] MEDS: BENZTROPINE MESYLATE (1 MG) 1 MG TABLET PO SCH ×2 (08:41→17:00)
[2019-05-04] MEDS: CHOLECALCIFEROL 1,000 UNIT TABLET (VIT D3) PO SCH (08:42)
[2019-05-04] MEDS: risperiDONE-M 0.5 MG TAB.RAPDIS PO SCH ×2 (08:42→17:00)
[2019-05-04] MEDS: DIVALPROEX SODIUM 250 MG TABLET.DR PO SCH ×2 (08:42→20:45)
--- NOTE | 2019-05-04 08:42 | NUR ---
RN Note: Pt refused all AM medication. states "I don't take any medication ever"
--- NOTE | 2019-05-04 08:53 | NUR ---
BILLY received a call from BRITTA Llanes at Dr. Jostin Pacheco's Office Address: [address], [place] [address] requesting discharge information for pt. BILLY informed her that pt is refusing medications and treatment and psychiatrist will be filing a RIESE Hearing to administer psych medications against her will.
[2019-05-04 11:30] VITALS: BP 157/96
--- NOTE | 2019-05-04 15:00 | NUR ---
GROUP NOTE: SW encouraged pt to participate in group on this present day discussing "gaining insight." Pt refused to participate and yelled at SW to leave her room. Pts mood was angry with flat affect. Pt has not been cooperating with her treatment and has been refusing medications. Pt appeared to be responding to internal stimuli.
[2019-05-04 16:00] VITALS: BP 161/74
[2019-05-04] MEDS: DOCUSATE SODIUM 100 MG CAPSULE PO SCH (17:00)
[2019-05-04] MEDS: ATORVASTATIN 10 MG TABLET PO SCH (20:46)
[2019-05-05 08:00] VITALS: BP 153/70
[2019-05-05] MEDS: BENZTROPINE MESYLATE (1 MG) 1 MG TABLET PO SCH ×2 (08:22→17:00)
[2019-05-05] MEDS: CHOLECALCIFEROL 1,000 UNIT TABLET (VIT D3) PO SCH (08:23)
[2019-05-05] MEDS: LOSARTAN POTASSIUM 25 MG TABLET PO SCH (08:23)
[2019-05-05] MEDS: DIVALPROEX SODIUM 250 MG TABLET.DR PO SCH ×2 (08:23→20:41)
[2019-05-05] MEDS: risperiDONE-M 0.5 MG TAB.RAPDIS PO SCH ×2 (08:23→17:00)
--- NOTE | 2019-05-05 08:23 | NUR ---
PT REFUSED ALL MORNING MEDICATIONS AFTER MED EDUCATION
--- NOTE | 2019-05-05 13:47 | NUR ---
GROUP NOTE: SW encouraged pt to participate in group on this present day discussing "family support." Pt refused to speak to SW and did not respond when SW called her name. Pt was sitting on the edge of her bed starring at the floor and mumbled to herself. Pt has been refusing medications and is responding to internal stimuli.
[2019-05-05 16:00] VITALS: BP 153/81
[2019-05-05] MEDS: DOCUSATE SODIUM 100 MG CAPSULE PO SCH (17:05)
--- NOTE | 2019-05-05 17:05 | NUR ---
GPS/RN-NOTES PATIENT REFUSED ALL 1700 MEDICATIONS,DESPITE EXPLANATIONS RISK AND BENEFIT. OFFERED X3
[2019-05-05 19:59] VITALS: BP 167/75
[2019-05-05] MEDS: ATORVASTATIN 10 MG TABLET PO SCH (20:41)
--- NOTE | 2019-05-05 20:42 | NUR ---
PATIENT REFUSED ORDERED MEDICATIONS. REVIEWED WITH PATIENT TATIANA RAYA BEEN FILED. PATIENT STATES "THATS FINE. I WANT TO SEE THE BILLING SPEC." Addendum: 05/05/19 at 2042 by SAMMY LEACH RN REVIEWED WITH PATIENT THE RISKS AND BENEFITS OF TAKING MEDICATIONS. PATIENT STILL REFUSING.
[2019-05-06 08:00] VITALS: BP 154/59
--- NOTE | 2019-05-06 08:39 | NUR ---
SW spoke with pts son Sharif [phone] and informed him pt will be having RIESE HEARING on this present day. Son requested a call from the RN once pts first dose of Invega Sustenna is administered.
[2019-05-06] MEDS: LOSARTAN POTASSIUM 25 MG TABLET PO SCH (09:00)
[2019-05-06] MEDS: CHOLECALCIFEROL 1,000 UNIT TABLET (VIT D3) PO SCH (09:00)
[2019-05-06] MEDS: risperiDONE-M 0.5 MG TAB.RAPDIS PO SCH ×2 (09:00→16:54)
[2019-05-06] MEDS: DIVALPROEX SODIUM 250 MG TABLET.DR PO SCH ×2 (09:00→21:00)
[2019-05-06] MEDS: BENZTROPINE MESYLATE (1 MG) 1 MG TABLET PO SCH ×2 (09:00→16:55)
[2019-05-06 16:00] VITALS: BP 144/71
[2019-05-06] MEDS: OLANZAPINE 10 MG VIAL IM PRN (16:54)
[2019-05-06] MEDS: DOCUSATE SODIUM 100 MG CAPSULE PO SCH (17:13)
--- NOTE | 2019-05-06 17:13 | NUR ---
PATIENT REFUSED DUE MEDICATIONS. RISK AND BENEFITS EXPLAINED. PATIENT IS REISED. PATIENT REFUSED RISPERDAL x3. RISK AND BENEFITS EXPLAINED. ZYPREXA IM ADMINISTERED PER MD ORDER.
--- NOTE | 2019-05-06 17:43 | NUR ---
RN NOTE: PATIENT REFUSED COPY OF CERTIFICATION REVIEW HEARING RECORD AND MEDICATION CAPACITY HEARING RECORD.
[2019-05-06 20:02] VITALS: BP 148/76
[2019-05-06] MEDS: ATORVASTATIN 10 MG TABLET PO SCH (21:56)
[2019-05-07 08:00] VITALS: BP 155/95
[2019-05-07] MEDS: DIVALPROEX SODIUM 250 MG TABLET.DR PO SCH ×2 (09:00→20:38)
[2019-05-07] MEDS: BENZTROPINE MESYLATE (1 MG) 1 MG TABLET PO SCH ×2 (09:00→17:00)
[2019-05-07] MEDS: CHOLECALCIFEROL 1,000 UNIT TABLET (VIT D3) PO SCH (09:00)
[2019-05-07] MEDS: risperiDONE-M 0.5 MG TAB.RAPDIS PO SCH (09:00)
[2019-05-07] MEDS: LOSARTAN POTASSIUM 25 MG TABLET PO SCH (09:00)
[2019-05-07] MEDS: OLANZAPINE 10 MG VIAL IM PRN (10:28)
--- NOTE | 2019-05-07 10:28 | NUR ---
RN NOTE: PATIENT REFUSED SCHEDULED 0900 MEDICATIONS x3. RISK AND BENEFITS EXPLAINED. PATIENT REFUSED RISPERDAL. PATIENT IS REISED. ZYPREXA 2.5 MG (0.25 mL) ADMINISTERED PER MD ORDERS.
[2019-05-07 16:00] VITALS: BP 160/93
[2019-05-07] MEDS ORDERED: OLANZAPINE 10 MG VIAL IM PRN (16:00)
[2019-05-07] MEDS ORDERED: risperiDONE-M 0.5 MG TAB.RAPDIS PO SCH (17:00)
[2019-05-07] MEDS: DOCUSATE SODIUM 100 MG CAPSULE PO SCH (18:00)
--- NOTE | 2019-05-07 18:22 | NUR ---
RN NOTE: OFFERED 1700 MEDICATIONS. PATIENT REFUSED 1700 MEDICATIONS RISK AND BENEFITS EXPLAINED. INFORMED PATIENT THAT SHE IS RESIED AND ZYPREXA 5MG IM WILL BE ADMINISTERED SINCE SHE REFUSED P.O. RISPERDAL. PATIENT BEGAN TO BARGAIN AND SAID SHE WILL TAKE THE PILLS. RISPERDAL P.O. OFFERED ONCE AGAIN AND PATIENT REFUSED RISPERDAL, ZYPREXA 5MG IM ADMINISTERED PER MD ORDERS.
[2019-05-07] MEDS: ATORVASTATIN 10 MG TABLET PO SCH (21:00)
--- NOTE | 2019-05-07 21:00 | NUR ---
rn gps notes patient refused to have vital signs taken and refused medications as scheduled. explained risks and benefits. Addendum: 05/08/19 at 0351 by FEMI EL RN patient used profanity stated " im not gonna do anything this [facility] wants me to do and not gonna use no f machine ".
[2019-05-08 08:00] VITALS: BP 97/60
[2019-05-08] MEDS: BENZTROPINE MESYLATE (1 MG) 1 MG TABLET PO SCH ×2 (09:00→17:00)
[2019-05-08] MEDS: DIVALPROEX SODIUM 250 MG TABLET.DR PO SCH ×2 (09:00→21:00)
[2019-05-08] MEDS: CHOLECALCIFEROL 1,000 UNIT TABLET (VIT D3) PO SCH (09:00)
[2019-05-08] MEDS: risperiDONE-M 0.5 MG TAB.RAPDIS PO SCH ×2 (09:00→17:00)
[2019-05-08] MEDS: LOSARTAN POTASSIUM 25 MG TABLET PO SCH (09:00)
--- NOTE | 2019-05-08 10:42 | NUR ---
GPS/RN-NOTES RECEIVED VERBAL ORDER FROM DR. BAILEY TO HOLD RISPERDAL 1MG P.O DOSE TODAY AND GIVE INVEGA IM X1 . CHARGE NURSE AWARE.
[2019-05-08] MEDS ORDERED: PALIPERIDONE IM ONE (11:00)
--- NOTE | 2019-05-08 15:13 | NUR ---
GROUP NOTE: SW prompted pt to attend group on 05/08/19 at 2:30pm discussing goal setting for while they are in the hospital and after discharge, but pt was agressive and not appropriate for group.
[2019-05-08] MEDS: DOCUSATE SODIUM 100 MG CAPSULE PO SCH (17:18)
[2019-05-08] MEDS: ATORVASTATIN 10 MG TABLET PO SCH (22:00)
--- NOTE | 2019-05-08 23:01 | NUR ---
GPS RN NOTE: PATIENT REFUSED HS MEDICATION, EXPLAINED THE RISK AND BENEFITS, PATIENT STILL REFUSED, STARTED GETS AGITATED AND SCREAM. REDIRECTED THE PATIENT, OFFERED SNACKS AND PATIENT APPRECIATED. WILL CONTINUE TO MONITOR Q15 MINS FOR SAFETY
[2019-05-09 08:00] VITALS: BP 130/79
[2019-05-09] MEDS: BENZTROPINE MESYLATE (1 MG) 1 MG TABLET PO SCH ×2 (08:16→17:00)
[2019-05-09] MEDS: LOSARTAN POTASSIUM 25 MG TABLET PO SCH (08:16)
[2019-05-09] MEDS: CHOLECALCIFEROL 1,000 UNIT TABLET (VIT D3) PO SCH (08:17)
[2019-05-09] MEDS: DIVALPROEX SODIUM 250 MG TABLET.DR PO SCH ×2 (08:17→21:00)
[2019-05-09] MEDS: risperiDONE-M 0.5 MG TAB.RAPDIS PO SCH ×2 (08:17→17:00)
[2019-05-09] MEDS: OLANZAPINE 10 MG VIAL IM PRN ×2 (09:08→18:09)
[2019-05-09] MEDS: DOCUSATE SODIUM 100 MG CAPSULE PO SCH (17:18)
[2019-05-09] MEDS: ATORVASTATIN 10 MG TABLET PO SCH (22:00)
[2019-05-10] MEDS: risperiDONE-M 0.5 MG TAB.RAPDIS PO SCH ×2 (08:53→17:00)
[2019-05-10] MEDS: LOSARTAN POTASSIUM 25 MG TABLET PO SCH (08:53)
[2019-05-10] MEDS: CHOLECALCIFEROL 1,000 UNIT TABLET (VIT D3) PO SCH (08:53)
[2019-05-10] MEDS: BENZTROPINE MESYLATE (1 MG) 1 MG TABLET PO SCH ×2 (08:53→17:00)
[2019-05-10] MEDS: DIVALPROEX SODIUM 250 MG TABLET.DR PO SCH ×2 (08:53→21:00)
[2019-05-10] MEDS: OLANZAPINE 10 MG VIAL IM PRN ×2 (08:56→17:33)
[2019-05-10 15:56] VITALS: BP 136/73
[2019-05-10] MEDS: DOCUSATE SODIUM 100 MG CAPSULE PO SCH (18:00)
--- NOTE | 2019-05-10 20:25 | NUR ---
RN NOTES: Pt S/B DR CYR AT BEDSIDE. INTRODUCED HIMSELF, Pt GOT AGITATED AND YELLED AT THE DR. SAID TO "I DO NOT CARE WHO YOU ARE. YOU ARE NOTHING TO ME."
[2019-05-10] MEDS: ATORVASTATIN 10 MG TABLET PO SCH (22:00)
[2019-05-11] MEDS: LOSARTAN POTASSIUM 25 MG TABLET PO SCH (08:23)
[2019-05-11] MEDS: BENZTROPINE MESYLATE (1 MG) 1 MG TABLET PO SCH ×2 (08:23→16:37)
[2019-05-11] MEDS: DIVALPROEX SODIUM 250 MG TABLET.DR PO SCH ×2 (08:24→20:51)
[2019-05-11] MEDS: risperiDONE-M 0.5 MG TAB.RAPDIS PO SCH ×2 (08:24→16:37)
[2019-05-11] MEDS: CHOLECALCIFEROL 1,000 UNIT TABLET (VIT D3) PO SCH (08:24)
--- NOTE | 2019-05-11 08:24 | NUR ---
RN NOTE- PT REFUSING V/S CHECK AND ALL PO MEDS AT THIS TIME. WILL ATTEMPT AGAIN IN HOUR.
[2019-05-11] MEDS: OLANZAPINE 10 MG VIAL IM PRN (09:16)
--- NOTE | 2019-05-11 09:22 | NUR ---
RN NOTE- PT REFUSED MEDS. ZYPREXA IM GIVEN W ASSIST BY STAFF AND INSPECTOR HEATING AND REFRIGERATION AND SECURITY. ZYPREXA 0.5 ML TO RT DELTOID.
--- NOTE | 2019-05-11 15:19 | NUR ---
GROUP NOTE: SW encouraged pt to participate in group on this present day discussing "discharge planning." Pt was verbally aggressive and not appropriate for group.
[2019-05-11] MEDS: HALOPERIDOL LACTATE INJ 5 MG/ML VIAL IM SCH (17:39)
[2019-05-11] MEDS: DOCUSATE SODIUM 100 MG CAPSULE PO SCH (17:39)
--- NOTE | 2019-05-11 17:39 | NUR ---
RN NOTE- PT REFUSED RISPERDAL PO MEDS. HALDOL IM GIVEN W FLOUR INSPECTOR, SECURITY AND RN'S. IM HALDOL LT DELTOID.
[2019-05-11 19:55] VITALS: BP 119/53
[2019-05-11] MEDS: ATORVASTATIN 10 MG TABLET PO SCH (21:22)
--- NOTE | 2019-05-11 21:30 | NUR ---
GPS NOTES PATIENT REFUSED LIPITOR AND DEPAKOTE DESPITE EXPLANATION OF RISKS AND BENEFITS. PER PATIENT "I ALREADY TOOK A SHOT, I DON'T NEED ANY MORE MEDICATIONS." TRIED TO EDUCATE PATIENT ON THE "SHOT" (HALDOL) SHE HAD AND HOW ITS DIFFERENT FROM LIPITOR AND DEPAKOTE. PATIENT KEPT INSISTING NO MORE MEDICATIONS. WILL CONTINUE TO MONITOR.
[2019-05-12 08:00] VITALS: BP 151/75
[2019-05-12] MEDS: LOSARTAN POTASSIUM 25 MG TABLET PO SCH ×2 (09:00→09:48)
[2019-05-12] MEDS: BENZTROPINE MESYLATE (1 MG) 1 MG TABLET PO SCH ×3 (09:00→17:00)
[2019-05-12] MEDS: CHOLECALCIFEROL 1,000 UNIT TABLET (VIT D3) PO SCH ×2 (09:00→09:47)
[2019-05-12] MEDS: DIVALPROEX SODIUM 250 MG TABLET.DR PO SCH ×3 (09:00→21:00)
[2019-05-12] MEDS: risperiDONE-M 0.5 MG TAB.RAPDIS PO SCH ×3 (09:00→17:00)
--- NOTE | 2019-05-12 09:30 | NUR ---
REFUSED AM MEDS INCLUDING RISPERDAL,SO HALDOL INJECTION GIVEN.
[2019-05-12] MEDS: HALOPERIDOL LACTATE INJ 5 MG/ML VIAL IM SCH ×2 (10:01→17:26)
--- NOTE | 2019-05-12 15:00 | NUR ---
GROUP NOTE: SW encouraged pt to participate in group on this present day discussing "appropriate coping skills." Pt was uncooperative and was laying in bed staring at the wall. Pt did not respond to SW.
--- NOTE | 2019-05-12 15:22 | NUR ---
BILLY spoke with pts son Sharif [phone] and attempted to discuss discharge planning and treatment planning with son. Son stated that he did not want to discuss a discharge plan until pt is 100% stable and med-compliant. SW informed son that psychiatrist Dr. Chakraborty attempted to contact him to discuss pts discharge/treatment plan and also informed him that pts medications were changed and that pt was responding better to Haldol 5mg. Son stated that the hospital should not make any decisions regarding pts discharge before consulting with him and having a discussion with the psychiatrist. BILLY stated that she would notify Dr. Chakraborty and attempt to call him again tomorrow. Son stated that he will not be available after 9am tomorrow as [place] will be [place] of [place]. BILLY stated that she will attempt to contact tomorrow if not 05/14/19.
[2019-05-12 16:00] VITALS: BP 154/82
[2019-05-12] MEDS: DOCUSATE SODIUM 100 MG CAPSULE PO SCH (17:23)
--- NOTE | 2019-05-12 18:00 | NUR ---
REFUSED PM MEDS INCLUDING RISPERDAL SO HALDOL INJECTION GIVEN.
[2019-05-12 20:16] VITALS: BP 152/70
[2019-05-12] MEDS: ATORVASTATIN 10 MG TABLET PO SCH (21:08)
--- NOTE | 2019-05-12 21:09 | NUR ---
REFUSED HER LIPITOR AND DEPAKOTE, STATED THAT SHE'S NOT TAKING ANY PSYCHIATRIC MEDICATIONS, EXPLAINED THAT LIPITOR IS NOT, SHE STILL REFUSED.
[2019-05-13 08:00] VITALS: BP 148/93
[2019-05-13] MEDS: BENZTROPINE MESYLATE (1 MG) 1 MG TABLET PO SCH ×2 (08:26→17:00)
[2019-05-13] MEDS: LOSARTAN POTASSIUM 25 MG TABLET PO SCH (08:26)
[2019-05-13] MEDS: risperiDONE-M 0.5 MG TAB.RAPDIS PO SCH ×2 (08:27→17:00)
[2019-05-13] MEDS: DIVALPROEX SODIUM 250 MG TABLET.DR PO SCH ×2 (08:27→20:06)
[2019-05-13] MEDS: CHOLECALCIFEROL 1,000 UNIT TABLET (VIT D3) PO SCH (08:27)
[2019-05-13] MEDS: HALOPERIDOL LACTATE INJ 5 MG/ML VIAL IM SCH ×2 (08:29→17:44)
--- NOTE | 2019-05-13 08:34 | NUR ---
RN NOTE- PT REFUSED MORNING MEDICATIONS. IM HALDOL ADMINISTERED JOAO W MALE STAFF AND FEMALE RN IN ATTENDANCE.
--- NOTE | 2019-05-13 12:29 | NUR ---
SNF FOLLOW UP: BILLY spoke with Chapis docent coordinator at [facility] Address: [address], [place] [address] who stated facility is still taking pt back.
--- NOTE | 2019-05-13 13:59 | NUR ---
BILLY contacted pts son Sharif [phone] and left a voicemail informing him that MD has ordered discharge for tomorrow 05/14/19 back to [facility]. BILLY requested call back.
--- NOTE | 2019-05-13 15:16 | NUR ---
BILLY received a call from pts son Bsihop [phone] requesting pts discharge to [place] be postponed one day until pts other son Sharif speaks with psychiatrist. Son requested pt not be discharged until she is completely 100% stable and BILLY informed him that pt is at her baseline and keeping her in a psych unit indefinitely was not possible due to mental health laws and also informed him that over medicating pt was unethical. BILLY informed him that pt can continue to stabilize at a SNF and continue with psychiatric treatment. Son understood and stated that he wishes for psychiatrist to call Sharif to discuss the next step. BILLY informed him that she will notify Dr. Chakraborty and ask he contact Sharif.
--- NOTE | 2019-05-13 15:21 | NUR ---
Group Note: SW encouraged pt to participate in group on this present day discussing "discharge planning." Pt was verbally aggressive and not appropriate for group therapy. SW informed her that her SW is working on the pts discharge back to [facility].
[2019-05-13 16:00] VITALS: BP 161/83
[2019-05-13] MEDS: DOCUSATE SODIUM 100 MG CAPSULE PO SCH (17:25)
--- NOTE | 2019-05-13 17:44 | NUR ---
RN NOTE-PT REFUSED RX. HALDOL ADMINISTERED IM W CLEANER CARPET AND UPHOLSTERY
[2019-05-13 20:00] VITALS: BP 143/69
--- NOTE | 2019-05-13 20:06 | NUR ---
RN GPS NOTES PATIENT REFUSED PO MEDICATIONS SCHEDULED STATES " NO MEDICATION". EXPLAINED RISKS AND BENEFITS REFUSED X3.
[2019-05-13 20:09] VITALS: BP 143/69
[2019-05-13] MEDS: ATORVASTATIN 10 MG TABLET PO SCH (21:22)
[2019-05-14 08:00] VITALS: BP 142/71
[2019-05-14] MEDS: BENZTROPINE MESYLATE (1 MG) 1 MG TABLET PO SCH ×2 (09:00→17:00)
[2019-05-14] MEDS: risperiDONE-M 0.5 MG TAB.RAPDIS PO SCH ×2 (09:00→17:00)
[2019-05-14] MEDS: CHOLECALCIFEROL 1,000 UNIT TABLET (VIT D3) PO SCH (09:00)
[2019-05-14] MEDS: LOSARTAN POTASSIUM 25 MG TABLET PO SCH (09:00)
[2019-05-14] MEDS: DIVALPROEX SODIUM 250 MG TABLET.DR PO SCH ×2 (09:00→21:00)
[2019-05-14] MEDS: HALOPERIDOL LACTATE INJ 5 MG/ML VIAL IM SCH ×2 (09:26→17:12)
--- NOTE | 2019-05-14 09:32 | NUR ---
GPS/RN-NOTES PATIENT STATED" I WANT THE SHOT NO PILLS FOR ME". PATIENT WAS RIESE HALDOL 5MG IM GIVEN BACK UP ORDER. IM GIVEN AT RIGHT DELTOID PATIENT TOLERATED. WELL.
--- NOTE | 2019-05-14 12:33 | NUR ---
BILLY received a call from pts son Sharif [phone] who emphasized that pt could not be discharged without his approval and without him speaking to a psychiatrist. SW informed him that she and psychiatrist attempted to contact him but he was unavailable. Son stated that he refuses for pt to be discharged until be has a clear "game plan" and understanding of pts treatment once discharged to [place]. Son wishes for pt to continue receiving Haldol IM and BILLY explained that once pt is discharged pts psychiatric hold and RIESE will no longer apply at the longterm. BILLY also explained that pt has been refusing PO psych meds and that and injection cannot be given against her will at the SNF. Son was upset and stated that he was not okay with that and that he did not want her discharged at all. BILLY explained that pt cannot be kept on a hold indefinitely and that as of now pt no longer meets criteria for acute psych hospitalization. BILLY educated pt and suggested he pursue LSP conservatorship. Son stated that he is looking into LPS conservatorship but that it is a very difficult process. BILLY informed him that she will have Dr Chakraborty call him.
--- NOTE | 2019-05-14 15:14 | NUR ---
Group Note: SW encouraged pt to participate in group on 05/14/19 at 2pm discussing "social supports." Pt was verbally aggressive and not appropriate for group therapy. SW asked her to talk to her about her son but the pt told the SW that she does not want to talk.
[2019-05-14 16:00] VITALS: BP 148/81
[2019-05-14] MEDS ORDERED: HALOPERIDOL DECANOATE IM 100 MG/ML AMPUL IM ONE (16:00)
--- NOTE | 2019-05-14 16:14 | NUR ---
BILLY spoke with pts son Sharif [phone] after he spoke with psychiatrist Dr. Chakraborty and he agreed to proceed with discharge on Saturday05/14/19 to [facility].
[2019-05-14] MEDS: DOCUSATE SODIUM 100 MG CAPSULE PO SCH (17:06)
[2019-05-14 19:59] VITALS: BP 126/68
[2019-05-14] MEDS: ATORVASTATIN 10 MG TABLET PO SCH (22:00)
--- NOTE | 2019-05-14 22:20 | NUR ---
GPS/RN REUSED DEPAKOTE AND LIPITOR ORDERED. "I DON'T NEED ANY MEDICATION FUCK YOU, IDIOT", PATIENT STATED WHEN OFFERED THE MEDICATIONS.
[2019-05-15 07:56] VITALS: BP 155/86
--- NOTE | 2019-05-15 08:43 | NUR ---
DISCHARGE NOTE: Pt will be discharged at 11:00am via [facility] to [facility] [place] ([facility] [address] [address] [id number] . Pt's Son Sharif [phone] has been notified and agrees with discharge plan. Pts mood is labile with congruent affect. Pt denied visual/auditory hallucinations and denied suicidal/homicidal ideation. Pt will be under the care of Psychiatrist: Dr. Amira Galindo [facility] [address] [address] [phone] and Traveling Nurse: Dr Carranza Address: [address] [place] [id number] . The multidisciplinary exit care form was done, printed, signed, and given to the patient.
[2019-05-15 09:00] VITALS: BP 155/86
[2019-05-15] MEDS: CHOLECALCIFEROL 1,000 UNIT TABLET (VIT D3) PO SCH (09:00)
[2019-05-15] MEDS: BENZTROPINE MESYLATE (1 MG) 1 MG TABLET PO SCH (09:00)
[2019-05-15] MEDS: LOSARTAN POTASSIUM 25 MG TABLET PO SCH (09:00)
[2019-05-15] MEDS: DIVALPROEX SODIUM 250 MG TABLET.DR PO SCH (09:00)
[2019-05-15] MEDS: risperiDONE-M 0.5 MG TAB.RAPDIS PO SCH (09:00)
[2019-05-15] MEDS: HALOPERIDOL LACTATE INJ 5 MG/ML VIAL IM SCH (09:45)
--- NOTE | 2019-05-15 09:46 | NUR ---
RN NOTE- PT REFUSED RX. HALDOL IM GIVEN W STAFF. TOLERATED WELL.
--- NOTE | 2019-05-15 11:44 | NUR ---
RN NOTE - DISCHARGE PT DISCHARGED AT THIS TIME TO [facility] [phone]. SON LUCERO IS AWARE OF D/C. PT ALERT ORIENTED TO PERSON AND PLACE. VSS. IN NO ACUTE DISTRESS. DENIES SI HI AH VH AT TIME OF D/C. PERSONAL BELONGINGS SENT WITH PT AND AMBULANCE STAFF. REPORT PHONED TO THERESA CALLJEAS AT FACILITY. PT ARMBAND REMOVED.
== END 2019-05-15 11:45 | DRG 885 ==
LOC: ER 13:57 → GPS 16:18
PROVIDERS: ADMIT Psychiatry & Neurology Psychosomatic Medicine; ATTEND Student in an Organized Health Care Education/Training Program
DX: F25.0 Schizoaffective disorder, bipolar type (principal); N17.0 Acute kidney failure with tubular necrosis; F32.9 Major depressive disorder, single episode, unspecified; E11.9 Type 2 diabetes mellitus without complications; I10 Essential (primary) hypertension; G31.84 Mild cognitive impairment of uncertain or unknown etiology; E78.5 Hyperlipidemia, unspecified; F41.9 Anxiety disorder, unspecified; Z91.14 Patient's other noncompliance with medication regimen; Z91.19 Patient's noncompliance with other medical treatment and regimen; Z79.899 Other long term (current) drug therapy; F09 Unspecified mental disorder due to known physiological condition
CPT/HCPCS: 36415; 80048-TC; 80053-TC; 80061-TC; 80076-TC; 80164-TC; 80305; 81000-TC; 84443-TC; 85025-TC; 87081-TC; G0480; J1630; J1631; J3490